=== PATIENT | female | born 1980 | race African-American/Black ===

== ENCOUNTER 2016-09-13 12:44 | Emergency (ER) | payer MEDICAID ==
[2016-09-13 12:49] VITALS: BP 143/92; BMI 66.4
--- NOTE | 2016-09-13 13:53 | DR.GENAD ---
HPI - PCP Primary Care Physician: chasidy johnson - Complaint/Symptoms Chief Complaint:: patient stated she has a rash on her body that started 4 days ago. was seen in [place] [facility] 2 days ago and was told to stop the aubrey and aubrey baby lotion. - Source History Provided: Patient - Mode of Arrival Mode of Arrival: Ambulatory - Timing Onset of Chief Complaint: 09/09/16 PMH - PMH Past Medical History: Yes Past Medical History: Anxiety, Arthritis, Asthma, GERD, Hypertension Past Surgical History: Yes Surgical History: Ortho Surgery - Family History History of Family Medical Conditions: Yes Family Medical History: Diabetes Mellitus, [place], Coronary Artery Disease, Hypertension - Social History Does patient currently use any type of tobacco product: No Have you used tobacco products in the last 12 months: No Type of Tobacco Use: None Does any household member use tobacco: No Alcohol Use: None Do you use any recreational Drugs:: No Lives With: Family Lives Where: Home - infectious screening In the last 2 months have you had wt loss of >10#?: NO Have you had fever, night sweats or hemotysis?: No Have you traveled outside the country in the last 6 months?: No Isolation: Standard ROS - Review of Systems Constitutional: No Symptoms Reported Eyes: No Symptoms Reported ENTM: No Symptoms Reported Respiratoy: No Symptoms Reported Cardiovascular: No Symptoms Reported Gastrointestinal/Abdominal: No Symptoms Reported Genitourinary: No Symptoms Reported Neurological: No Symptoms Reported Musculoskeletal: No Symptoms Reported Integumentary: Rash (macular papular ) Hematologic/Lymphatic: No Symptoms Reported Endocrine: No Symptoms Reported Psychiatric: No Symptoms Reported All Other Systems: Reviewed and Negative PE - Vital Signs Vitals: Temperature 97.8 F Pulse Rate 82 Respiratory Rate 16 Blood Pressure [Left Arm] 151/83 Blood Pressure [Right Arm] 133/73 Blood Pressure 143/92 O2 Sat by Pulse Oximetry 100 - General Limitations: No Limitations General Appearance: Alert, In No Apparent Distress - Head Head Exam: Normal Inspection, Atraumatic - Eyes Eye exam: Normal Appearance, PERRL, EOMI - ENT ENT Exam: Normal Exam External Ear Exam: Normal External Inspection TM/Canal Exam: Bilateral Normal Nose Exam: Normal Nose Exam Mouth Exam: Normal Inspection Throat Exam: Normal Inspection - Neck Neck Exam: Normal Inspection - Chest Chest Inspection: Normal Inspection - Respiratory Respiratory Exam: Normal Lung Sounds Bilat Respiratory Exam: Bilateral Clear to Auscultation - Cardiovascular Cardiovascular Exam: Regular Rate, Normal Rhythm - Abdominal Exam Abdominal Exam: Normal Inspection - Neurologic Neurological Exam: Alert, Oriented X3, CN II-XII Intact - Psychiatric Psychiatric Exam: Normal Affect - Skin Skin Exam: Warm, Dry, Intact, Rash (sparse macularpapular rash trunk) - Diagnosis Discharge Problem: Dermatitis - Discharge Plan Condition: Stable - Follow ups/Referrals Follow ups/Referrals: GLORIA JOHNSON [Primary Care Provider] - 3 days - Instructions
== END 2016-09-13 14:14 | disposition home or self-care (01) ==
LOC: ER 12:44
DX: L30.8 Other specified dermatitis (principal)
CPT/HCPCS: 99281; 99282

== ENCOUNTER → 2016-11-19 | Outpatient (CLI) | payer MEDICAID ==
[2016-11-19 11:56] LABS: BASOPHILS % (AUTO) 0.7 % (0.2-1.0); EOSINOPHILS # (AUTO) 0.1 x10^3/uL (0.0-0.2); EOSINOPHILS % (AUTO) 2.4 % (0.9-2.9); HEMATOCRIT 36.9 % (36.0-47.0); HEMOGLOBIN 11.5 g/dL (12.0-16.0); LYMPHOCYTES # (AUTO) 1.7 X10^3/uL (1.3-2.9); LYMPHOCYTES % (AUTO) 29.3 % (21.0-51.0); MEAN CORPUSCULAR HEMOGLOBIN 20.4 pg (27.0-34.0); MEAN CORPUSCULAR HGB CONC 31.1 g/dL (33.0-35.0); MEAN CORPUSCULAR VOLUME 65.5 fL (80.0-100.0); MEAN PLATELET VOLUME 7.2 fL (7.4-11.0); MONOCYTES # (AUTO) 0.4 x10^3/uL (0.3-0.8); MONOCYTES % (AUTO) 6.3 % (0.0-13.0); NEUTROPHILS # (AUTO) 3.5 x10^3/uL (2.2-4.8); NEUTROPHILS % (AUTO) 61.3 % (42.0-75.0); PLATELET COUNT 315 X10^3/uL (150.0-450.0); RED BLOOD COUNT 5.63 X10^6/uL (3.5-5.4); RED CELL DISTRIBUTION WIDTH 16.2 % (11.6-16.5); WHITE BLOOD COUNT 5.8 X10^3/uL (3.6-10.0)
[2016-11-19 12:16] LABS: PLATELET MORPHOLOGY COMMENT NORMAL (NORMAL)
[2016-11-19 12:17] LABS: HYPOCHROMASIA 2+; MICROCYTOSIS 1+
[2016-11-19 12:30] LABS: ALANINE AMINOTRANSFERASE 27 Units/L (12-78); ALBUMIN 3.2 g/dL (3.4-5.0); ALKALINE PHOSPHATASE 61 Units/L (46-116); ASPARTATE AMINO TRANSFERASE 18 Units/L (15-37); BLOOD UREA NITROGEN 7 mg/dL (7-18); CALCIUM 8.9 mg/dL (8.5-10.1); CARBON DIOXIDE 27.6 mmol/L (21-32); CHLORIDE 103 mmol/L (98-107); CHOL/HDL RATIO 4.2 (0.0-5.0); CHOLESTEROL 181 mg/dL (0-200); COR CA(FOR HYPOALB) 9.5 mg/dL (8.5-10.1); CREATININE 0.81 mg/dL (0.55-1.02); GLUCOSE 98 mg/dL (65-99); HDL CHOLESTEROL 43 mg/dL (40-60); SODIUM 139 mmol/L (136-145); TOTAL PROTEIN 7.2 g/dL (6.4-8.2); TRIGLYCERIDES 107 mg/dL (0-150); eGFR BLACK RACES > 60 (>60); eGFR NON BLACK RACES > 60 (>60)
== END ==
LOC: LAB 11:38
PROVIDERS: ATTEND Nurse Practitioner Family
DX: I10 Essential (primary) hypertension (principal); Z91.89 Other specified personal risk factors, not elsewhere classified
CPT/HCPCS: 36415; 80053; 80061; 85025

== ENCOUNTER → 2016-11-21 | Outpatient (CLI) | payer MEDICAID | LOC: LAB 10:46 | PROVIDERS: ATTEND Nurse Practitioner Family | DX: R53.83 Other fatigue (principal) | CPT/HCPCS: 36415; 82607; 82728; 82746; 83540; 84466 ==

== ENCOUNTER → 2017-05-13 | Outpatient (CLI) | payer MEDICAID ==
--- NOTE | 2017-05-13 10:39 | RAD ---
Examination: Right knee, three views History: Pain and swelling Comparison reference: 08/06/2016 Findings: There is degenerative narrowing of patellar-femoral, lateral and medial compartments. Grisel nal osteophytes are present. No fracture or dislocation is identified. Radiographic detail is limited by patient's size. Impression: Tricompartmental osteoarthritis. No acute features identified. Reported By:
[2017-05-13 10:57] LABS: BASOPHILS # (AUTO) 0.1 X10^3/uL (0.0-0.1); BASOPHILS % (AUTO) 1.4 % (0.2-1.0); EOSINOPHILS # (AUTO) 0.1 x10^3/uL (0.0-0.2); EOSINOPHILS % (AUTO) 1.7 % (0.9-2.9); HEMATOCRIT 36.5 % (36.0-47.0); HEMOGLOBIN 11.6 g/dL (12.0-16.0); LYMPHOCYTES # (AUTO) 2.3 X10^3/uL (1.3-2.9); LYMPHOCYTES % (AUTO) 30.5 % (21.0-51.0); MEAN CORPUSCULAR HEMOGLOBIN 20.8 pg (27.0-34.0); MEAN CORPUSCULAR HGB CONC 31.8 g/dL (33.0-35.0); MEAN CORPUSCULAR VOLUME 65.5 fL (80.0-100.0); MEAN PLATELET VOLUME 7.4 fL (7.4-11.0); MONOCYTES # (AUTO) 0.5 x10^3/uL (0.3-0.8); MONOCYTES % (AUTO) 6.8 % (0.0-13.0); NEUTROPHILS # (AUTO) 4.4 x10^3/uL (2.2-4.8); NEUTROPHILS % (AUTO) 59.6 % (42.0-75.0); PLATELET COUNT 300 X10^3/uL (150.0-450.0); RED BLOOD COUNT 5.58 X10^6/uL (3.5-5.4); RED CELL DISTRIBUTION WIDTH 16.4 % (11.6-16.5); WHITE BLOOD COUNT 7.4 X10^3/uL (3.6-10.0)
[2017-05-13 11:05] LABS: ALANINE AMINOTRANSFERASE 26 Units/L (12-78); ALBUMIN 3.3 g/dL (3.4-5.0); ALKALINE PHOSPHATASE 59 Units/L (46-116); ASPARTATE AMINO TRANSFERASE 17 Units/L (15-37); BLOOD UREA NITROGEN 10 mg/dL (7-18); CALCIUM 8.8 mg/dL (8.5-10.1); CARBON DIOXIDE 26.5 mmol/L (21-32); CHLORIDE 105 mmol/L (98-107); CHOL/HDL RATIO 3.6 (0.0-5.0); CHOLESTEROL 167 mg/dL (0-200); COR CA(FOR HYPOALB) 9.4 mg/dL (8.5-10.1); CREATININE 0.71 mg/dL (0.55-1.02); HDL CHOLESTEROL 46 mg/dL (40-60); SODIUM 140 mmol/L (136-145); TOTAL PROTEIN 7.1 g/dL (6.4-8.2); TRIGLYCERIDES 132 mg/dL (0-150); eGFR BLACK RACES > 60 (>60); eGFR NON BLACK RACES > 60 (>60)
[2017-05-13 11:47] LABS: HYPOCHROMASIA 1+; MICROCYTOSIS 1+; PLATELET MORPHOLOGY COMMENT NORMAL (NORMAL)
[2017-05-13 11:50] LABS: IRON 41 ug/dL (50-175); TOTAL IRON BINDING CAPACITY 333 ug/dL (250-450)
== END ==
LOC: RAD 10:11
PROVIDERS: ATTEND Nurse Practitioner Family
DX: M25.561 Pain in right knee (principal); E78.4 Other hyperlipidemia; E61.1 Iron deficiency; I10 Essential (primary) hypertension
CPT/HCPCS: 36415; 73564; 80053; 80061; 82728; 83540; 83550; 85025

== ENCOUNTER → 2017-06-12 | Outpatient (CLI) | payer MEDICAID | LOC: LAB 11:24 | PROVIDERS: ATTEND Nurse Practitioner Family | DX: Z13.0 Encounter for screening for diseases of the blood and blood-forming organs and certain disorders involving the immune mechanism (principal) | CPT/HCPCS: 36415; 82607; 82728; 82746; 83540; 83550; 83918 ==

== ENCOUNTER → 2017-07-14 | Outpatient (CLI) | payer MEDICAID ==
--- NOTE | 2017-07-14 12:13 | RAD ---
HISTORY: Right-sided facial pain. Status post fall last month. Study: Mandible series: Multiple views Comparison: None Findings: As can best be determined the mandible is intact. The mandibular condyles appear to be normally seat ed. The visualized paranasal sinuses are clear. IMPRESSION: 1. Negative plain films of the mandibles. 2. CT scan may be of assistance if clinically indicated. This may disclosed clinically significant nondisplaced fractures that plain films cannot demonstrate. Reported By:
== END ==
LOC: RAD 11:38
PROVIDERS: ATTEND Orthopaedic Surgery
DX: R51 Headache (principal)
CPT/HCPCS: 70110

== ENCOUNTER 2017-09-02 07:51 | Emergency (ER) | payer MEDICAID ==
[2017-09-02 07:59] VITALS: BP 185/85; BMI 53.1
--- NOTE | 2017-09-02 09:10 | DR.GENAD ---
HPI - PCP Primary Care Physician: RENETTA - HPI Comment HPI Comment: LOST LOT OF BLOOD WITH CLOTS. SHE HAD TO CLEAN FLOOR WHEN BLOOD AND CLOTS GOT TO THE FLOOR UPON STANDING. SLIGHT DIZZINES THAT IS RESOLVING AND CHEST DISCOMFORT THAT IS RESOLVE. - Complaint/Symptoms Chief Complaint Doctors Comments: HEAVY MENTRUAL BLEEDING NOTED THIS AM. Chief Complaint:: HEAVY BLEEDING FROM MENSTRUAL CYCLE. HEAVINESS IN CHEST. DENIES SOB OR TINGLING/ NUMBNESS ANY WHERE - Nurses notes reviewed Nurses Notes Review: Yes - Source History Provided: Patient - Mode of Arrival Mode of Arrival: Ambulatory - Timing Onset of Chief Complaint: 09/02/17 Came on: Suddenly - Duration Duration: Constant Duration: Hours - Severity Severity: Moderate PMH - PMH Past Medical History: Yes Past Medical History: Anxiety, Arthritis, Asthma, GERD, Hypertension Past Surgical History: Yes Surgical History: Ortho Surgery - Family History History of Family Medical Conditions: Yes Family Medical History: Diabetes Mellitus, [place], Coronary Artery Disease, Hypertension - Social History Does any household member use tobacco: No Alcohol Use: None Do you use any recreational Drugs:: No Lives With: Family Lives Where: Home - infectious screening In the last 2 months have you had wt loss of >10#?: NO Have you had fever, night sweats or hemotysis?: No Have you traveled outside the country in the last 6 months?: No Isolation: Standard ROS - Review of Systems Constitutional: No Symptoms Reported Eyes: No Symptoms Reported ENTM: No Symptoms Reported Respiratoy: No Symptoms Reported Cardiovascular: No Symptoms Reported Gastrointestinal/Abdominal: No Symptoms Reported Genitourinary: Bleeding Neurological: No Symptoms Reported Musculoskeletal: No Symptoms Reported Integumentary: No Symptoms Reported Hematologic/Lymphatic: No Symptoms Reported Endocrine: No Symptoms Reported All Other Systems: Reviewed and Negative PE - Vital Signs Vitals: Temperature 97.7 F Pulse Rate 92 Respiratory Rate 22 Blood Pressure [Left Arm] 151/83 Blood Pressure [Right Arm] 133/73 Blood Pressure 185/85 O2 Sat by Pulse Oximetry 100 - General Limitations: No Limitations General Appearance: Alert - Head Head Exam: Normal Inspection - Eyes Eye exam: Normal Appearance - ENT ENT Exam: Normal External Ear Exam External Ear Exam: Normal External Inspection Nose Exam: Normal Nose Exam Throat Exam: Normal Inspection - Neck Neck Exam: Trachea Midline - Chest Chest Inspection: Symmetric Chest Wall Rise - Respiratory Respiratory Exam: Normal Lung Sounds Bilat Respiratory Exam: Bilateral Clear to Auscultation - Cardiovascular Cardiovascular Exam: Regular Rate, Normal Rhythm, Normal Heart Sounds - Abdominal Exam Abdominal Exam: Normal Bowel Sounds, Soft. negative: Tenderness - Extremities Extremities Exam: Normal Inspection - Back Back Exam: Normal Inspection - Neurologic Neurological Exam: Alert, Oriented X3 - Psychiatric Psychiatric Exam: Normal Affect, Normal Mood - Skin Skin Exam: Normal Color MDM - Differential Diagnosis Differential Diagnosis: MENORRHAGIA, DYSFUNCTIONAL UTERIN BLEEDING. Course - Treatment Treatment: SEE EBONY. - Education/Counseling Education/Counseling: Patient, Education Educated On: Diagnosis, Needs for Follow Up ROR - Labs Reviewed Laboratory Results Reviewed?: Yes Result Diagrams: 09/02/17 09:18 09/02/17 09:18 Laboratory: WBC 6.1 X10^3/uL (3.6-10.0) 09/02/17 09:18 RBC 5.40 X10^6/uL (3.5-5.4) 09/02/17 09:18 Hgb 11.1 g/dL (12.0-16.0) L 09/02/17 09:18 Hct 35.2 % (36.0-47.0) L 09/02/17 09:18 MCV 65.1 fL (80.0-100.0) L 09/02/17 09:18 MCH 20.6 pg (27.0-34.0) L 09/02/17 09:18 MCHC 31.6 g/dL (33.0-35.0) L 09/02/17 09:18 RDW 17.1 % (11.6-16.5) H 09/02/17 09:18 Plt Count 298 X10^3/uL (150.0-450.0) 09/02/17 09:18 Plt Count Comment Adequate (ADEQUATE) 09/02/17 09:18 MPV 7.4 fL (7.4-11.0) 09/02/17 09:18 Neut % 58.5 % (42.0-75.0) 09/02/17 09:18 Lymph % 31.1 % (21.0-51.0) 09/02/17 09:18 [place] % 6.8 % (0.0-13.0) 09/02/17 09:18 Eos % 2.4 % (0.9-2.9) 09/02/17 09:18 Baso % 1.2 % (0.2-1.0) H 09/02/17 09:18 Neut # 3.5 x10^3/uL (2.2-4.8) 09/02/17 09:18 Lymph # 1.9 X10^3/uL (1.3-2.9) 09/02/17 09:18 [place] # 0.4 x10^3/uL (0.3-0.8) 09/02/17 09:18 Eos # 0.1 x10^3/uL (0.0-0.2) 09/02/17 09:18 Baso # 0.1 X10^3/uL (0.0-0.1) 09/02/17 09:18 Absolute Nucleated RBC 0.0 /100WBC 09/02/17 09:18 Plt Morphology Comment Normal (NORMAL) 09/02/17 09:18 RBC Morphology Abnormal (NORMAL) A 09/02/17 09:18 Hypochromasia 2+ A 09/02/17 09:18 Microcytosis 1+ A 09/02/17 09:18 INR Target Range - 09/02/17 09:18 INR 1.02 (0.8-1.3) 09/02/17 09:18 PTT 27.4 SECONDS (22.9-36.5) 09/02/17 09:18 PTT Comment - 09/02/17 09:18 Sodium 139 mmol/L (136-145) 09/02/17 09:18 Corrected Sodium TNP 09/02/17 09:18 Potassium 4.1 mmol/L (3.5-5.1) 09/02/17 09:18 Chloride 104 mmol/L (98-107) 09/02/17 09:18 Carbon Dioxide 26.6 mmol/L (21-32) 09/02/17 09:18 BUN 12 mg/dL (7-18) 09/02/17 09:18 Creatinine 0.74 mg/dL (0.55-1.02) 09/02/17 09:18 Est GFR (MDRD) Af Amer > 60 (>60) 09/02/17 09:18 Est GFR (MDRD) Non-Af > 60 (>60) 09/02/17 09:18 Glucose 106 mg/dL (65-99) H 09/02/17 09:18 Calcium 8.5 mg/dL (8.5-10.1) 09/02/17 09:18 Corrected Calcium 9.2 mg/dL (8.5-10.1) 09/02/17 09:18 Total Bilirubin 0.20 mg/dL (0.2-1.0) 09/02/17 09:18 AST 16 Units/L (15-37) 09/02/17 09:18 ALT 25 Units/L (12-78) 09/02/17 09:18 Alkaline Phosphatase 54 Units/L (46-116) 09/02/17 09:18 Total Protein 7.1 g/dL (6.4-8.2) 09/02/17 09:18 Albumin 3.1 g/dL (3.4-5.0) L 09/02/17 09:18 Globulin 4.0 g/dL (2.5-4.5) 09/02/17 09:18 Albumin/Globulin Ratio 0.8 Ratio (1.1-2.1) L 09/02/17 09:18 HCG, Quant < 1 mIU/mL (0-6) 09/02/17 09:18 Specimen Type Random urine 09/02/17 09:41 Urine Color Bloody (YELLOW) 09/02/17 09:41 Urine Appearance Cloudy (CLEAR) 09/02/17 09:41 Urine pH 6.0 (5.0 - 8.0) 09/02/17 09:41 Ur Specific [place] 1.020 (1.000-1.030) 09/02/17 09:41 Urine Protein 3+ (NEGATIVE) 09/02/17 09:41 Urine Glucose (UA) Negative (NEGATIVE) 09/02/17 09:41 Urine Ketones Negative (NEGATIVE) 09/02/17 09:41 Urine Occult Blood 5+ (NEGATIVE) 09/02/17 09:41 Urine Nitrite Positive (NEGATIVE) 09/02/17 09:41 Urine Bilirubin Negative (NEGATIVE) 09/02/17 09:41 Urine Urobilinogen 1+ (NORMAL) 09/02/17 09:41 Ur Leukocyte Esterase 2+ (NEGATIVE) 09/02/17 09:41 Urine RBC Tntc /HPF (NONE SEEN) 03/06/18 09:41 Urine WBC 3-5 /HPF (NONE SEEN) 09/02/17 09:41 Ur Squamous Epith Cells Rare /HPF (NEGATIVE) 09/02/17 09:41 Amorphous Sediment Trace /HPF (NEGATIVE) 09/02/17 09:41 Urine Bacteria Trace /HPF (NEGATIVE) 09/02/17 09:41 Urine Mucus Few /HPF (NEGATIVE) 09/02/17 09:41 Ur Culture Indicated? No/not indicated 09/02/17 09:41 - Diagnosis Discharge Problem: Menorrhagia Qualifiers: Menorrahagia type: with regular cycle Qualified Code(s): N92.0 - Excessive and frequent menstruation with regular cycle - Discharge Plan Disposition: 01 HOME, SELF-CARE Condition: Stable - Follow ups/Referrals Follow ups/Referrals: BANDAR ULLOA [STAFF PHYSICIAN] - 09/03/17 SANDRA ORO [Primary Care Provider] - 2 days - Instructions Instructions: Abnormal Uterine Bleeding, [id number] Additional Instructions: RETURN TO ED IF WORSE.
[2017-09-02 09:40] LABS: BASOPHILS # (AUTO) 0.1 X10^3/uL (0.0-0.1); BASOPHILS % (AUTO) 1.2 % (0.2-1.0); EOSINOPHILS # (AUTO) 0.1 x10^3/uL (0.0-0.2); EOSINOPHILS % (AUTO) 2.4 % (0.9-2.9); HEMATOCRIT 35.2 % (36.0-47.0); HEMOGLOBIN 11.1 g/dL (12.0-16.0); LYMPHOCYTES # (AUTO) 1.9 X10^3/uL (1.3-2.9); LYMPHOCYTES % (AUTO) 31.1 % (21.0-51.0); MEAN CORPUSCULAR HEMOGLOBIN 20.6 pg (27.0-34.0); MEAN CORPUSCULAR HGB CONC 31.6 g/dL (33.0-35.0); MEAN CORPUSCULAR VOLUME 65.1 fL (80.0-100.0); MEAN PLATELET VOLUME 7.4 fL (7.4-11.0); MONOCYTES # (AUTO) 0.4 x10^3/uL (0.3-0.8); MONOCYTES % (AUTO) 6.8 % (0.0-13.0); NEUTROPHILS # (AUTO) 3.5 x10^3/uL (2.2-4.8); NEUTROPHILS % (AUTO) 58.5 % (42.0-75.0); PLATELET COUNT 298 X10^3/uL (150.0-450.0); RED CELL DISTRIBUTION WIDTH 17.1 % (11.6-16.5); WHITE BLOOD COUNT 6.1 X10^3/uL (3.6-10.0)
[2017-09-02 09:56] LABS: BILIRUBIN,URINE NEGATIVE (NEGATIVE); BLOOD/HEMOGLOBIN,URINE 5+ (NEGATIVE); GLUCOSE, URINE NEGATIVE (NEGATIVE); KETONES,URINE NEGATIVE (NEGATIVE); LEUKOCYTE ESTERASE ,URINE 2+ (NEGATIVE); NITRITES,URINE POSITIVE (NEGATIVE); PROTEIN,URINE 3+ (NEGATIVE); UROBILINOGEN,URINE 1+ (NORMAL)
[2017-09-02 09:59] LABS: ALANINE AMINOTRANSFERASE 25 Units/L (12-78); ALBUMIN 3.1 g/dL (3.4-5.0); ALKALINE PHOSPHATASE 54 Units/L (46-116); ASPARTATE AMINO TRANSFERASE 16 Units/L (15-37); BLOOD UREA NITROGEN 12 mg/dL (7-18); CALCIUM 8.5 mg/dL (8.5-10.1); CARBON DIOXIDE 26.6 mmol/L (21-32); CHLORIDE 104 mmol/L (98-107); COR CA(FOR HYPOALB) 9.2 mg/dL (8.5-10.1); CREATININE 0.74 mg/dL (0.55-1.02); SODIUM 139 mmol/L (136-145); TOTAL PROTEIN 7.1 g/dL (6.4-8.2); eGFR BLACK RACES > 60 (>60); eGFR NON BLACK RACES > 60 (>60)
[2017-09-02 10:05] LABS: HYPOCHROMASIA 2+; MICROCYTOSIS 1+; PLATELET MORPHOLOGY COMMENT NORMAL (NORMAL)
[2017-09-02 10:08] LABS: HCG,QUANTITATIVE < 1 mIU/mL (0-6)
[2017-09-02 10:12] LABS: APPEARANCE,URINE CLOUDY (CLEAR); COLOR,URINE BLOODY (YELLOW)
[2017-09-02 10:13] LABS: AMORPHOUS SEDIMENT,UR TRACE /HPF (NEGATIVE); BACTERIA,URINE TRACE /HPF (NEGATIVE); MUCUS,URINE FEW /HPF (NEGATIVE); RBC,URINE TNTC /HPF (NONE SEEN); SQUAMOUS EPITHELIAL CELL,UR RARE /HPF (NEGATIVE)
== END 2017-09-02 10:35 | disposition home or self-care (01) ==
LOC: ER 08:03
DX: N92.0 Excessive and frequent menstruation with regular cycle (principal)
CPT/HCPCS: 36415; 80053; 81001; 84702; 85025; 85610; 85730; 99282

== ENCOUNTER → 2017-09-29 | Outpatient (CLI) | payer MEDICAID ==
[2017-09-02 07:59] VITALS: BP 185/85
[2017-09-29 10:49] LABS: BASOPHILS # (AUTO) 0.1 X10^3/uL (0.0-0.1); BASOPHILS % (AUTO) 1.1 % (0.2-1.0); EOSINOPHILS % (AUTO) 0.3 % (0.9-2.9); HEMATOCRIT 35.7 % (36.0-47.0); HEMOGLOBIN 11.3 g/dL (12.0-16.0); LYMPHOCYTES # (AUTO) 2.7 X10^3/uL (1.3-2.9); LYMPHOCYTES % (AUTO) 26.5 % (21.0-51.0); MEAN CORPUSCULAR HEMOGLOBIN 20.6 pg (27.0-34.0); MEAN CORPUSCULAR HGB CONC 31.6 g/dL (33.0-35.0); MEAN CORPUSCULAR VOLUME 65.4 fL (80.0-100.0); MEAN PLATELET VOLUME 7.3 fL (7.4-11.0); MONOCYTES # (AUTO) 0.5 x10^3/uL (0.3-0.8); MONOCYTES % (AUTO) 5.5 % (0.0-13.0); NEUTROPHILS # (AUTO) 6.7 x10^3/uL (2.2-4.8); NEUTROPHILS % (AUTO) 66.6 % (42.0-75.0); PLATELET COUNT 335 X10^3/uL (150.0-450.0); RED BLOOD COUNT 5.46 X10^6/uL (3.5-5.4); WHITE BLOOD COUNT 10.1 X10^3/uL (3.6-10.0)
[2017-09-29 10:52] LABS: ALANINE AMINOTRANSFERASE 24 Units/L (12-78); ALBUMIN 3.1 g/dL (3.4-5.0); ALKALINE PHOSPHATASE 58 Units/L (46-116); ASPARTATE AMINO TRANSFERASE 11 Units/L (15-37); BLOOD UREA NITROGEN 12 mg/dL (7-18); CALCIUM 7.9 mg/dL (8.5-10.1); CARBON DIOXIDE 26.7 mmol/L (21-32); CHLORIDE 105 mmol/L (98-107); CHOLESTEROL 185 mg/dL (0-200); COR CA(FOR HYPOALB) 8.6 mg/dL (8.5-10.1); CREATININE 0.66 mg/dL (0.55-1.02); HDL CHOLESTEROL 56 mg/dL (40-60); SODIUM 139 mmol/L (136-145); TOTAL PROTEIN 7.2 g/dL (6.4-8.2); TRIGLYCERIDES 92 mg/dL (0-150); eGFR BLACK RACES > 60 (>60); eGFR NON BLACK RACES > 60 (>60)
[2017-09-29 10:53] LABS: CHOL/HDL RATIO 3.3 (0.0-5.0)
[2017-09-29 11:11] LABS: HYPOCHROMASIA 2+; MICROCYTOSIS 1+; PLATELET MORPHOLOGY COMMENT NORMAL (NORMAL)
[2017-09-29 11:25] LABS: ERYTHROCYTE SEDIMENTATION RATE 18 MM/HOUR (0-20)
== END ==
LOC: LAB 10:14
PROVIDERS: ATTEND Nurse Practitioner Family
DX: E78.4 Other hyperlipidemia (principal); I10 Essential (primary) hypertension; M17.0 Bilateral primary osteoarthritis of knee; R79.82 Elevated C-reactive protein (CRP)
CPT/HCPCS: 36415; 80053; 80061; 85025; 85652; 86140

== ENCOUNTER → 2017-10-20 | Outpatient (CLI) | payer MEDICAID ==
--- NOTE | 2017-10-20 16:58 | RAD ---
HISTORY: Chest pain. Study: PA and lateral chest Comparison: 02/20/2016 Findings: The heart, lungs, mediastinum and bony structures are normal for patient's age with minimal convex ri ght thoracic scoliosis and mild thoracic spondylosis. IMPRESSION: 1. No radiographic evidence of acute cardiopulmonary disease or significant change is noted when com pared to the prior examination. Reported By:
== END ==
LOC: LAB 16:21
PROVIDERS: ATTEND Nurse Practitioner Family
DX: D53.9 Nutritional anemia, unspecified (principal); R07.89 Other chest pain
CPT/HCPCS: 36415; 71046; 82607; 82728; 82746; 83540; 83550; 83918

== ENCOUNTER → 2017-11-10 | Outpatient (CLI) | payer MEDICAID ==
[2017-11-10 15:31] LABS: BASOPHILS # (AUTO) 0.1 X10^3/uL (0.0-0.1); BASOPHILS % (AUTO) 1.4 % (0.2-1.0); EOSINOPHILS # (AUTO) 0.2 x10^3/uL (0.0-0.2); EOSINOPHILS % (AUTO) 2.8 % (0.9-2.9); HEMATOCRIT 36.2 % (36.0-47.0); HEMOGLOBIN 11.5 g/dL (12.0-16.0); LYMPHOCYTES # (AUTO) 2.8 X10^3/uL (1.3-2.9); LYMPHOCYTES % (AUTO) 43.1 % (21.0-51.0); MEAN CORPUSCULAR HEMOGLOBIN 20.7 pg (27.0-34.0); MEAN CORPUSCULAR HGB CONC 31.7 g/dL (33.0-35.0); MEAN CORPUSCULAR VOLUME 65.2 fL (80.0-100.0); MEAN PLATELET VOLUME 7.2 fL (7.4-11.0); MONOCYTES # (AUTO) 0.5 x10^3/uL (0.3-0.8); MONOCYTES % (AUTO) 7.5 % (0.0-13.0); NEUTROPHILS # (AUTO) 2.9 x10^3/uL (2.2-4.8); NEUTROPHILS % (AUTO) 45.2 % (42.0-75.0); PLATELET COUNT 325 X10^3/uL (150.0-450.0); RED BLOOD COUNT 5.55 X10^6/uL (3.5-5.4); RED CELL DISTRIBUTION WIDTH 17.6 % (11.6-16.5); WHITE BLOOD COUNT 6.4 X10^3/uL (3.6-10.0)
[2017-11-10 15:40] LABS: ALANINE AMINOTRANSFERASE 29 Units/L (12-78); ALBUMIN 3.1 g/dL (3.4-5.0); ALKALINE PHOSPHATASE 58 Units/L (46-116); ASPARTATE AMINO TRANSFERASE 12 Units/L (15-37); BLOOD UREA NITROGEN 10 mg/dL (7-18); CALCIUM 8.3 mg/dL (8.5-10.1); CARBON DIOXIDE 28.7 mmol/L (21-32); CHLORIDE 105 mmol/L (98-107); CREATININE 0.71 mg/dL (0.55-1.02); SODIUM 139 mmol/L (136-145); TOTAL PROTEIN 6.7 g/dL (6.4-8.2); eGFR BLACK RACES > 60 (>60); eGFR NON BLACK RACES > 60 (>60)
[2017-11-10 15:50] LABS: HYPOCHROMASIA 2+; PLATELET MORPHOLOGY COMMENT NORMAL (NORMAL)
[2017-11-10 15:51] LABS: ANISOCYTOSIS SLIGHT; MICROCYTOSIS 1+
[2017-11-10 16:28] LABS: ERYTHROCYTE SEDIMENTATION RATE 15 MM/HOUR (0-20)
== END ==
LOC: LAB 14:56
PROVIDERS: ATTEND Nurse Practitioner Family
DX: M70.51 Other bursitis of knee, right knee (principal); I10 Essential (primary) hypertension; R79.82 Elevated C-reactive protein (CRP)
CPT/HCPCS: 36415; 80053; 85025; 85652; 86140

== ENCOUNTER 2018-01-02 21:07 | Observation (INO) ==
[2018-01-02] MEDS ORDERED: ASPIRIN PO ONE (21:35)
[2018-01-02] MEDS ORDERED: ASPIRIN ONE (21:44)
--- NOTE | 2018-01-02 21:48 | DR.CP ---
HPI - Time Seen Time seen: 21:37 - PCP Primary Care Physician: GISSELL ORO - Complaint Chief Complaint Doctor Comments: Patient is complaining of tightness in chest for a few minutes then it release and her heart seems to beat fast afterwards. States she has been having chest pain for the past 2-3 months that has been getting worst recently. States she took a nitroglycerin yesterday and it helped the pain but she has not had a nitroglycerin or aspirin today. States she went to see her doctor and she gave her some nitroglycerin to put under her tongue when she has chest pain. States the chest pains are sharp at times and is dull at times. States she has seen a balloon artist in the past and they told her her heart was fine about a year ago. States her mother has CHF, COPD and Bradycardia and she just had a sister to for a heart attack at age 45. States she was on dialysis and had other problems. She denies wheezing but has been having problems with her legs and feet swelling. States she is taking Lasix , potassium, Losartan, neurontin and prevacid. State she has not had any medicines today. States the pain is 8 of 10. Chief Complaint:: CHEST PAIN, "FEELS LIKE MY HEART TIGHTNESS AND THEN WHEN I TAKE A DEEP BREATH IT RELAXES. I FEEL LIKE MY HEART BEATS REALLY FAST AND HARD AT TIMES. THIS HAS BEEN GOING ON FOR A WHILE. I HAVE BEEN SEEING MY ." Self Treatment fo Chief Complaint: NITROGLYCERIN LAST NIGHT-DIDN'T HELP PAIN - Reviewed Nurses Notes Review: Yes - Source History Provided: Patient - Mode of Arrival Mode of Arrival: Ambulatory - Timing Onset of Chief Complaint: 12/19/17 Came on: Gradually Pain: Present Now - Duration Duration: Intermittent How lon Duration: Weeks - Location Location of Chest Pain: Chest Chest Pain Radiation Location: None - Context Onset: At rest, With light exertion Cardiac Risk Factors: Family History, HTN PE Risk Factors: None History of: Similar pain in the past Prehospital Care: None - Quality Quality: Sharp - Severity Severity: Moderate - Modifying Factors Worsens: Nothing Impoves: Nothing - Associated Signs and Symptoms Associated Signs and Symptoms: Palpitations PMH - PMH Past Medical History: Yes Past Medical History: Anxiety, Arthritis, Asthma, GERD, Hypertension Past Surgical History: Yes Surgical History: Ortho Surgery Past Surgical History Comment: LEFT FOOT - Family History History of Family Medical Conditions: Yes Family Medical History: Diabetes Mellitus, [place], Coronary Artery Disease, Hypertension - Social History Does patient currently use any type of tobacco product: No Have you used tobacco products in the last 12 months: No Type of Tobacco Use: None Does any household member use tobacco: No Alcohol Use: None Do you use any recreational Drugs:: No Lives With: Family Lives Where: Home - infectious screening Have you traveled outside the country in the last 6 months?: No Isolation: Standard ROS - Review of Systems Constitutional: No Symptoms Reported. negative: See HPI, Chills, Diaphoresis, Fever, Malaise, Weakness, Irritable, Fatigue, Loss of Appetite, Other Eyes: No Symptoms Reported. negative: See HPI, Eye Pain, Blurred Vision, Tearing, Discharge, Photophobia, Diplopia, Other ENTM: No Symptoms Reported Respiratoy: No Symptoms Reported. negative: See HPI, Productive Cough, Non- Productive Cough, Moist Cough, Dry Cough, Hacking Cough, Barking Cough, Brassy Cough, Orthopnea, Short of Breath, Stridor, Wheezing, Hemoptysis, Other Cardiovascular: Chest Pain, Palpitations. negative: No Symptoms Reported, See HPI, Edema, Syncope, Cyanosis, Skin Mottling, Other Gastrointestinal/Abdominal: No Symptoms Reported. negative: See HPI, Abdominal Pain, Constipation, Diarrhea, Nausea, Vomiting, Food Intolerance, Other Genitourinary: No Symptoms Reported. negative: See HPI, Discharge, Dysuria, Frequency, Hematuria, Pain, Bleeding, Other Neurological: No Symptoms Reported. negative: See HPI, Anxiety, Depressed, Emotional Problems, Headache, Numbness, Paresthesia, Pre-existing Deficit, Seizure, Tingling, Tremors, Weakness, Dizziness, Problems Walking, Speech Problem, Other Musculoskeletal: No Symptoms Reported Integumentary: No Symptoms Reported. negative: See HPI, Change in Color, Change in Hair/Nails, Dryness, Lesions, Lumps, Rash, Itching, Wound, Bruises, Juandice, Other Hematologic/Lymphatic: No Symptoms Reported Endocrine: No Symptoms Reported Psychiatric: No Symptoms Reported. negative: See HPI, Anxiety, Depression, Hallucinations, Excessive crying, Suicidal, Other PE - General Limitations: No Limitations General Appearance: Alert, In No Apparent Distress, Obese - Head Head Exam: Normal Inspection, Atraumatic, Normocephalic - Eyes Eye exam: Normal Appearance, PERRL, EOMI. negative: Scleral Icterus, Conjunctival Injection, Nystagmus, Miosis, Mydrasis, Periorbital Swelling, Periorbital Tenderness, Other - ENT ENT Exam: Normal Exam, Normal Oropharynx, Normal External Ear Exam, Mucous Membranes Moist, TM's Normal Bilaterally - Chest Chest Inspection: Normal Inspection, Symmetric Chest Wall Rise - Respiratory Respiratory Exam: Normal Lung Sounds Bilat Respiratory Exam: Bilateral Clear to Auscultation - Cardiovascular Cardiovascular Exam: Regular Rate, Normal Rhythm, Normal Heart Sounds Pulse: Normal Edema: 2, Bilateral, Lower, Extremity - Abdominal Exam Abdominal Exam: Normal Inspection, Normal Bowel Sounds, Soft Abdominal Tenderness: negative: RUQ, RLQ, LUQ, LLQ, Epigastrium, Suprapubic, Diffuse, Mild, Moderate, Severe, Other - Extremities Extremities Exam: Normal Inspection, Full ROM, Normal Capillary Refill (pes planus), Edema. negative: Tenderness, Joint Swelling, Calf Tenderness, Other - Back Back Exam: Normal Inspection, Full ROM. negative: Tenderness, (R) CVA Tenderness, (L) CVA Tenderness, Muscle Spasm, Paraspinal Tenderness, Vertebral Tenderness, Rashes, (R) Sciatic Notch Tenderness, (L) Sciatic Notch Tendern, (R ) Straight Leg Raise, (L) Straight Leg Raise, Other - Neurologic Neurological Exam: Alert, Oriented X3, CN II-XII Intact, Normal Gait, Reflexes Normal - Psychiatric Psychiatric Exam: Normal Affect, Normal Mood. negative: Depressed, Agitated, Anxious, Flat Affect, Manic, Homicidal Ideation, Suicidal Ideation, Other - Skin Skin Exam: Warm, Dry, Intact, Normal Color - Vitals Vitals: Temperature 97.7 F Pulse Rate [Apical] 89 Pulse Rate 88 Respiratory Rate 22 Blood Pressure [Left Arm] 139/78 Blood Pressure [Right Arm] 133/73 Blood Pressure 135/96 O2 Sat by Pulse Oximetry 100 Course - Reevaluation 1st: - Consultation Called: :34 Call Returned: :34 (Dr. Elmore to admit) - Education/Counseling Education/Counseling: Patient, Family Educated On: Treatment, Diagnosis, Needs for Follow Up ROR - Labs Reviewed Laboratory Results Reviewed?: Yes (All labs and x-ray results reviewed and discussed with patient) Result Diagrams: 01/02/18 21:47 01/02/18 21:47 - XRAY XRAY Interpreted by: Radiologist (CXR: Low lung volumes without acute abnormality.) - EKG Rate: 84 Holder: Normal Rhythm: NSR Block: None Hypertrophy: LVH ST: Inf, Nonsp - Labs Reviewed Laboratory: WBC 7.6 X10^3/uL (3.6-10.0) 01/02/18 21:47 RBC 5.04 X10^6/uL (3.5-5.4) 01/02/18 21:47 Hgb 10.7 g/dL (12.0-16.0) L 01/02/18 21:47 Hct 33.5 % (36.0-47.0) L 01/02/18 21:47 MCV 66.5 fL (80.0-100.0) L 01/02/18 21:47 MCH 21.2 pg (27.0-34.0) L 01/02/18 21:47 MCHC 31.9 g/dL (33.0-35.0) L 01/02/18 21:47 RDW 17.1 % (11.6-16.5) H 01/02/18 21:47 Plt Count 302 X10^3/uL (150.0-450.0) 01/02/18 21:47 Plt Count Comment Adequate (ADEQUATE) 01/02/18 21:47 MPV 7.4 fL (7.4-11.0) 01/02/18 21:47 Neut % (Auto) 53.9 % (42.0-75.0) 01/02/18 21:47 Lymph % (Auto) 35.4 % (21.0-51.0) 01/02/18 21:47 [place] % (Auto) 6.3 % (0.0-13.0) 01/02/18 21:47 Eos % (Auto) 3.1 % (0.9-2.9) H 01/02/18 21:47 Baso % (Auto) 1.3 % (0.2-1.0) H 01/02/18 21:47 Neut # (Auto) 4.1 x10^3/uL (2.2-4.8) 01/02/18 21:47 Lymph # (Auto) 2.7 X10^3/uL (1.3-2.9) 01/02/18 21:47 [place] # (Auto) 0.5 x10^3/uL (0.3-0.8) 01/02/18 21:47 Eos # (Auto) 0.2 x10^3/uL (0.0-0.2) 01/02/18 21:47 Baso # (Auto) 0.1 X10^3/uL (0.0-0.1) 01/02/18 21:47 Absolute Nucleated RBC 0.0 /100WBC 01/02/18 21:47 Plt Morphology Comment Normal (NORMAL) 01/02/18 21:47 RBC Morphology Abnormal (NORMAL) A 01/02/18 21:47 Hypochromasia 1+ A 01/02/18 21:47 Microcytosis 1+ A 01/02/18 21:47 INR Target Range - 01/02/18 21:47 INR 0.97 (0.8-1.3) 01/02/18 21:47 APTT 27.2 SECONDS (22.9-36.5) 01/02/18 21:47 PTT Comment - 01/02/18 21:47 D-Dimer 612 ng/mL (0-400) H* 01/02/18 21:47 Sodium 138 mmol/L (136-145) 01/02/18 21:47 Corrected Sodium TNP 01/02/18 21:47 Potassium 3.8 mmol/L (3.5-5.1) 01/02/18 21:47 Chloride 105 mmol/L (98-107) 01/02/18 21:47 Carbon Dioxide 27.5 mmol/L (21-32) 01/02/18 21:47 BUN 11 mg/dL (7-18) 01/02/18 21:47 Creatinine 0.80 mg/dL (0.55-1.02) 01/02/18 21:47 Est GFR (MDRD) Af Amer > 60 (>60) 01/02/18 21:47 Est GFR (MDRD) Non-Af > 60 (>60) 01/02/18 21:47 Glucose 103 mg/dL (65-99) H 01/02/18 21:47 Calcium 9.0 mg/dL (8.5-10.1) 01/02/18 21:47 Corrected Calcium 9.9 mg/dL (8.5-10.1) 01/02/18 21:47 Magnesium 1.7 mg/dL (1.7-2.9) 01/02/18 21:47 Total Bilirubin 0.20 mg/dL (0.2-1.0) 01/02/18 21:47 AST 13 Units/L (15-37) L 01/02/18 21:47 ALT 25 Units/L (12-78) 01/02/18 21:47 Alkaline Phosphatase 56 Units/L (46-116) 01/02/18 21:47 Creatine Kinase 76 Units/L (26-192) 01/02/18 21:47 CK-MB (CK-2) < 1.0 ng/mL (0-4.0) 01/02/18 21:47 CK/CKMB % Calc 1.3 % (<4) 01/02/18 21:47 Troponin I < 0.02 ng/mL (0-1.5) 01/02/18 21:47 Total Protein 6.4 g/dL (6.4-8.2) 01/02/18 21:47 Albumin 2.9 g/dL (3.4-5.0) L 01/02/18 21:47 Globulin 3.5 g/dL (2.5-4.5) 01/02/18 21:47 Albumin/Globulin Ratio 0.8 Ratio (1.1-2.1) L 01/02/18 21:47 - Diagnosis Discharge Problem: Chest pain, rule out acute myocardial infarction, Abnormal finding of blood chemistry Dyspnea Qualifiers: Dyspnea type: unspecified Qualified Code(s): R06.00 - Dyspnea, unspecified - Discharge Plan Disposition: ADMITTED INPATIENT Condition: Stable - Follow ups/Referrals Follow ups/Referrals: SANDRA ORO [Primary Care Provider] - 3 days - Instructions
[2018-01-02] MEDS: NS 1000 ML 1,000 ML IV SCH (21:51)
[2018-01-02] MEDS: NITROSTAT SL PRN ×3 (21:52→22:02)
[2018-01-02 22:02] LABS: BASOPHILS # (AUTO) 0.1 X10^3/uL (0.0-0.1); BASOPHILS % (AUTO) 1.3 % (0.2-1.0); EOSINOPHILS # (AUTO) 0.2 x10^3/uL (0.0-0.2); EOSINOPHILS % (AUTO) 3.1 % (0.9-2.9); HEMATOCRIT 33.5 % (36.0-47.0); HEMOGLOBIN 10.7 g/dL (12.0-16.0); LYMPHOCYTES # (AUTO) 2.7 X10^3/uL (1.3-2.9); LYMPHOCYTES % (AUTO) 35.4 % (21.0-51.0); MEAN CORPUSCULAR HEMOGLOBIN 21.2 pg (27.0-34.0); MEAN CORPUSCULAR HGB CONC 31.9 g/dL (33.0-35.0); MEAN CORPUSCULAR VOLUME 66.5 fL (80.0-100.0); MEAN PLATELET VOLUME 7.4 fL (7.4-11.0); MONOCYTES # (AUTO) 0.5 x10^3/uL (0.3-0.8); MONOCYTES % (AUTO) 6.3 % (0.0-13.0); NEUTROPHILS # (AUTO) 4.1 x10^3/uL (2.2-4.8); NEUTROPHILS % (AUTO) 53.9 % (42.0-75.0); PLATELET COUNT 302 X10^3/uL (150.0-450.0); RED BLOOD COUNT 5.04 X10^6/uL (3.5-5.4); RED CELL DISTRIBUTION WIDTH 17.1 % (11.6-16.5); WHITE BLOOD COUNT 7.6 X10^3/uL (3.6-10.0)
--- NOTE | 2018-01-02 22:12 | RAD ---
HISTORY: Chest pain and tightness Study: Single view chest Comparison: 10/20/2017 Findings: Lung volumes are reduced. No infiltrate, effusion or pneumothorax identified. The cardiac and mediast inal contours are within normal limits. The soft tissues are unremarkable. IMPRESSION: 1. Low lung volumes without acute abnormality. Reported By:
[2018-01-02 22:22] LABS: HYPOCHROMASIA 1+; MICROCYTOSIS 1+; PLATELET MORPHOLOGY COMMENT NORMAL (NORMAL)
[2018-01-02 22:24] LABS: BLOOD UREA NITROGEN 11 mg/dL (7-18); CARBON DIOXIDE 27.5 mmol/L (21-32); CHLORIDE 105 mmol/L (98-107); SODIUM 138 mmol/L (136-145); TROPONIN I < 0.02 ng/mL (0-1.5); eGFR NON BLACK RACES > 60 (>60)
[2018-01-02 22:28] LABS: ALANINE AMINOTRANSFERASE 25 Units/L (12-78); ALBUMIN 2.9 g/dL (3.4-5.0); ALKALINE PHOSPHATASE 56 Units/L (46-116); ASPARTATE AMINO TRANSFERASE 13 Units/L (15-37); CKMB % 1.3 % (<4); COR CA(FOR HYPOALB) 9.9 mg/dL (8.5-10.1); CREATINE KINASE 76 Units/L (26-192); CREATINE KINASE MB < 1.0 ng/mL (0-4.0); MAGNESIUM 1.7 mg/dL (1.7-2.9); TOTAL PROTEIN 6.4 g/dL (6.4-8.2)
[2018-01-03] MEDS ORDERED: NS 100 ML IV 100 ML IV ONE (00:18)
[2018-01-03] MEDS ORDERED: LOVENOX INJ 100 MG SYR SC STA (01:10)
[2018-01-03] MEDS ORDERED: LOVENOX INJ 100 MG SYR SC ONE (01:29)
[2018-01-03 01:38] LABS: CKMB % 1.2 % (<4); CREATINE KINASE 86 Units/L (26-192); CREATINE KINASE MB < 1.0 ng/mL (0-4.0); TROPONIN I < 0.02 ng/mL (0-1.5)
[2018-01-03] MEDS ORDERED: MORPHINE SULFATE INJ 2 MG INJ IVP PRN (01:44)
[2018-01-03] MEDS: NS 1000 ML 1,000 ML IV SCH ×2 (03:16→17:43)
[2018-01-03 03:23] VITALS: BMI 57.4
[2018-01-03 08:07] LABS: BASOPHILS # (AUTO) 0.1 X10^3/uL (0.0-0.1); BASOPHILS % (AUTO) 1.4 % (0.2-1.0); EOSINOPHILS # (AUTO) 0.2 x10^3/uL (0.0-0.2); EOSINOPHILS % (AUTO) 2.6 % (0.9-2.9); HEMATOCRIT 33.6 % (36.0-47.0); HEMOGLOBIN 10.6 g/dL (12.0-16.0); LYMPHOCYTES # (AUTO) 2.6 X10^3/uL (1.3-2.9); LYMPHOCYTES % (AUTO) 40.3 % (21.0-51.0); MEAN CORPUSCULAR HGB CONC 31.6 g/dL (33.0-35.0); MEAN CORPUSCULAR VOLUME 66.5 fL (80.0-100.0); MEAN PLATELET VOLUME 7.5 fL (7.4-11.0); MONOCYTES # (AUTO) 0.3 x10^3/uL (0.3-0.8); MONOCYTES % (AUTO) 5.1 % (0.0-13.0); NEUTROPHILS # (AUTO) 3.3 x10^3/uL (2.2-4.8); NEUTROPHILS % (AUTO) 50.6 % (42.0-75.0); PLATELET COUNT 291 X10^3/uL (150.0-450.0); RED BLOOD COUNT 5.06 X10^6/uL (3.5-5.4); RED CELL DISTRIBUTION WIDTH 16.6 % (11.6-16.5); WHITE BLOOD COUNT 6.5 X10^3/uL (3.6-10.0)
[2018-01-03 08:10] LABS: PLATELET MORPHOLOGY COMMENT NORMAL (NORMAL)
[2018-01-03 08:20] LABS: ANISOCYTOSIS SLIGHT; HYPOCHROMASIA 2+; MICROCYTOSIS 1+
[2018-01-03 08:35] LABS: CHOL/HDL RATIO 4.3 (0.0-5.0)
[2018-01-03 08:36] LABS: ALANINE AMINOTRANSFERASE 24 Units/L (12-78); ALBUMIN 2.9 g/dL (3.4-5.0); ALKALINE PHOSPHATASE 54 Units/L (46-116); ASPARTATE AMINO TRANSFERASE 14 Units/L (15-37); BLOOD UREA NITROGEN 10 mg/dL (7-18); CALCIUM 8.6 mg/dL (8.5-10.1); CARBON DIOXIDE 28.1 mmol/L (21-32); CHLORIDE 106 mmol/L (98-107); COR CA(FOR HYPOALB) 9.5 mg/dL (8.5-10.1); SODIUM 139 mmol/L (136-145); TOTAL PROTEIN 5.8 g/dL (6.4-8.2); eGFR NON BLACK RACES > 60 (>60)
[2018-01-03 08:41] LABS: CREATINE KINASE 70 Units/L (26-192); CREATINE KINASE MB < 1.0 ng/mL (0-4.0); TROPONIN I < 0.02 ng/mL (0-1.5)
[2018-01-03 08:44] LABS: CKMB % 1.4 % (<4)
[2018-01-03] MEDS ORDERED: LASIX PO SCH (09:00)
[2018-01-03] MEDS ORDERED: HYZAAR 50/12.5 MG PO SCH (09:00)
[2018-01-03] MEDS: LOVENOX INJ 120 MG SYR SC SCH ×2 (09:50→20:22)
[2018-01-03] MEDS: PROTONIX INJ 40 MG VIAL IVP SCH (09:50)
[2018-01-03] MEDS ORDERED: ULTRAM PO PRN (14:05)
[2018-01-03] MEDS ORDERED: NITROSTAT SL PRN (14:05)
[2018-01-03 14:16] LABS: CREATINE KINASE 85 Units/L (26-192); CREATINE KINASE MB < 1.0 ng/mL (0-4.0); TROPONIN I < 0.02 ng/mL (0-1.5)
[2018-01-03 14:43] LABS: CKMB % 1.2 % (<4)
[2018-01-03] MEDS: LOPRESSOR TAB 25 MG PO SCH (20:22)
[2018-01-03] MEDS ORDERED: NEURONTIN CAP 400 MG PO SCH (21:00)
--- NOTE | 2018-01-03 22:56 | DR.H&P ---
H&P - History & Physical for Day of: H&P Date: 01/03/18 - Chief Complaint Chief Complaint: CHEST PAIN, "FEELS LIKE MY HEART TIGHTNESS AND THEN WHEN I TAKE A DEEP BREATH IT RELAXES. I FEEL LIKE MY HEART BEATS REALLY FAST AND HARD AT TIMES. THIS HAS BEEN GOING ON FOR A WHILE. I HAVE BEEN SEEING MY ." - History of Present Illness History of Present Illness: Patient is complaining of tightness in chest for a few minutes then it release and her heart seems to beat fast afterwards. States she has been having chest pain for the past 2-3 months that has been getting worst recently. States she took a nitroglycerin 01/01/18 and it helped the pain but she has not had a nitroglycerin or aspirin 01/02/18. States she went to see her doctor and she gave her some nitroglycerin to put under her tongue when she has chest pain. States the chest pains are sharp at times and is dull at times. States she has seen a systems security analyst in the past and they told her her heart was fine about a year ago. States her mother has CHF, COPD and Bradycardia and she just had a sister to for a heart attack at age 43. States she was on dialysis and had other problems. She denies wheezing but has been having problems with her legs and feet swelling. States she is taking Lasix , potassium, Losartan, neurontin and prevacid. State she has not had any medicines today. States the pain is 8 of 10. Does have leg swelling. Denies any other complaints. - Past Medical History Past Medical History: Anxiety, Arthritis, Asthma, GERD, Hypertension - Past Surgical History Surgical History: Ortho Surgery - Family History Family Medical History: Diabetes Mellitus, [place], Coronary Artery Disease, Hypertension - Social History Does patient currently use any type of tobacco product: No Have you used tobacco products in the last 12 months: No Type of Tobacco Use: None Does any household member use tobacco: Yes Alcohol Use: None Drug Use: None - Medications Home Medications: No Known Drug Allergies Allergy (Verified 01/02/18 21:19) CONTINUE taking the following medications furosemide 40 mg PO DAILY 01/03/18 [History] gabapentin 400 mg PO HS 01/03/18 [History] losartan 100 mg PO DAILY 01/03/18 [History] nitroglycerin [Nitrostat] 0.4 mg SUBLINGUAL PRN PRN 01/03/18 [History] omeprazole 40 mg PO DAILY 01/03/18 [History] potassium chloride [Klor-Con 10] 10 meq PO DAILY 01/03/18 [History] tramadol 100 mg PO Q8H PRN 01/03/18 [History] - Review of Systems Constitutional: No Symptoms Reported Eyes: No Symptoms Reported ENT: No Symptoms Reported Respiratory: No Symptoms Reported Cardiovascular: Chest Pain, Palpitations Gastrointestinal: No Symptoms Reported Genitourinary: No Symptoms Reported Musculoskeletal: No Symptoms Reported Skin: No Symptoms Reported Neurological: No Symptoms Reported - Physical Exam Vital Signs: Temperature 97.9 F Pulse Rate [Right Brachial] 80 Pulse Rate [Apical] 73 Pulse Rate 88 Respiratory Rate 22 Blood Pressure [Left Arm] 139/78 Blood Pressure [Right Arm] 140/72 Blood Pressure 135/96 O2 Sat by Pulse Oximetry 100 Oriented: Normal Eyes: Normal Ear: Normal Nose: Normal Throat: Normal Respiratory: Clear Throughout Cardiovascular: Normal : Normal Auscultation: Bowel Sounds: Normal Palpation: Normal Tenderness: Normal Skin: Normal Musculoskeletal: Normal Psychiatric: Normal Mood Description: Calm Affect: Normal Speech Pattern: Clear - Assessment/Plan (1) Chest pain Status: Acute Plan: cardiac enzymes, telemetry (2) Palpitations Status: Acute Plan: metoprolol 25mg po bid (3) Obesity Qualifiers: Obesity classification: adult class 3 (BMI >= 40) Body mass index: BMI 50.0 -59.9 Status: Acute - Allergies Allergies/Adverse Reactions: Allergies Allergy/AdvReac Type Severity Reaction Status Date / Time No Known Drug Allergies Allergy Verified 01/02/18 21:19
[2018-01-04] MEDS: NS 1000 ML 1,000 ML IV SCH ×2 (03:32→08:33)
[2018-01-04 06:58] LABS: BASOPHILS # (AUTO) 0.1 X10^3/uL (0.0-0.1); EOSINOPHILS # (AUTO) 0.2 x10^3/uL (0.0-0.2); EOSINOPHILS % (AUTO) 2.8 % (0.9-2.9); HEMATOCRIT 34.3 % (36.0-47.0); HEMOGLOBIN 10.8 g/dL (12.0-16.0); LYMPHOCYTES # (AUTO) 1.7 X10^3/uL (1.3-2.9); LYMPHOCYTES % (AUTO) 30.5 % (21.0-51.0); MEAN CORPUSCULAR HEMOGLOBIN 20.9 pg (27.0-34.0); MEAN CORPUSCULAR HGB CONC 31.4 g/dL (33.0-35.0); MEAN CORPUSCULAR VOLUME 66.4 fL (80.0-100.0); MEAN PLATELET VOLUME 7.7 fL (7.4-11.0); MONOCYTES # (AUTO) 0.4 x10^3/uL (0.3-0.8); MONOCYTES % (AUTO) 7.9 % (0.0-13.0); NEUTROPHILS # (AUTO) 3.3 x10^3/uL (2.2-4.8); NEUTROPHILS % (AUTO) 57.8 % (42.0-75.0); PLATELET COUNT 282 X10^3/uL (150.0-450.0); RED BLOOD COUNT 5.17 X10^6/uL (3.5-5.4); RED CELL DISTRIBUTION WIDTH 16.9 % (11.6-16.5); WHITE BLOOD COUNT 5.7 X10^3/uL (3.6-10.0)
[2018-01-04 07:11] LABS: PLATELET MORPHOLOGY COMMENT NORMAL (NORMAL)
[2018-01-04 07:12] LABS: ANISOCYTOSIS SLIGHT; HYPOCHROMASIA 2+; MICROCYTOSIS 1+
[2018-01-04 07:49] LABS: BLOOD UREA NITROGEN 7 mg/dL (7-18); CALCIUM 8.7 mg/dL (8.5-10.1); CHLORIDE 103 mmol/L (98-107); CREATININE 0.77 mg/dL (0.55-1.02); SODIUM 137 mmol/L (136-145); eGFR NON BLACK RACES > 60 (>60)
[2018-01-04] MEDS ORDERED: LASIX PO SCH (09:00)
[2018-01-04] MEDS ORDERED: PATIENT'S HOME MEDICATION (Potassium Chloride [Potassium Chloride] 10 MEQ) PO SCH (09:00)
[2018-01-04] MEDS ORDERED: COZAAR PO SCH (09:00)
[2018-01-04] MEDS ORDERED: MICRO K EXTEN CAP 10 MEQ PO SCH (09:00)
[2018-01-04] MEDS ORDERED: PriLOSEC PO SCH (09:00)
[2018-01-04] MEDS: LOPRESSOR TAB 25 MG PO SCH (09:40)
[2018-01-04] MEDS: PROTONIX INJ 40 MG VIAL IVP SCH (09:40)
[2018-01-04] MEDS: LOVENOX INJ 120 MG SYR SC SCH (09:48)
[2018-01-04 12:18] LABS: ALANINE AMINOTRANSFERASE 25 Units/L (12-78); ALBUMIN 2.9 g/dL (3.4-5.0); ALKALINE PHOSPHATASE 53 Units/L (46-116); ASPARTATE AMINO TRANSFERASE 16 Units/L (15-37); COR CA(FOR HYPOALB) 9.6 mg/dL (8.5-10.1); TOTAL PROTEIN 6.4 g/dL (6.4-8.2)
[2018-01-04] MEDS ORDERED: ZOFRAN INJ 4 MG VIAL IVP PRN (13:33)
--- NOTE | 2018-01-04 17:29 | VAS ---
Lower extremity doppler sonogram Indication: Bilateral leg pain with elevated D-dimer Comparison: None available TECHNIQUE: Multiple ruiz scale and color flow Doppler images of the deep venous system were obtained of the right and left lower extremity. FINDINGS: The deep venous system of the right and left lower extremities were evaluated from the level of the c ommon femoral vein through the popliteal vein. Normal color flow and augmentation can be observed. In addition, normal compression is seen throughout the deep venous system. IMPRESSION: 1. Negative for bilateral lower extremity DVT. Reported By:
[2018-01-04 18:18] VITALS: BP 125/82
--- NOTE | 2018-01-17 22:24 | PCM.DCPLAN ---
Discharge Summary - Admission Date Date of Admission: 01/03/18 - Discharge Date Discharge Date: 01/04/18 - Admission Diagnoses (1) Chest pain Status: Acute (2) Palpitations Status: Acute (3) Obesity Status: Acute - Discharge Diagnoses Discharge Diagnosis: same as admission diagnosis - Discharge Medications Discharge Medications: Home Medication List furosemide 40 mg PO DAILY 01/03/18 [History] gabapentin 400 mg PO HS 01/03/18 [History] losartan 100 mg PO DAILY 01/03/18 [History] nitroglycerin [Nitrostat] 0.4 mg SUBLINGUAL PRN PRN 01/03/18 [History] omeprazole 40 mg PO DAILY 01/03/18 [History] potassium chloride [Klor-Con 10] 10 meq PO DAILY 01/03/18 [History] tramadol 100 mg PO Q8H PRN 01/03/18 [History] metoprolol tartrate 25 mg PO BID #60 tab 01/04/18 [Rx] Prescriptions: metoprolol tartrate AUDRA MCRAE - Hospital Course Vital Signs: Temperature 97.7 F Pulse Rate [Right Brachial] 77 Pulse Rate [Apical] 73 Pulse Rate 88 Respiratory Rate 20 Blood Pressure [Left Arm] 139/78 Blood Pressure [Right Arm] 125/82 Blood Pressure 135/96 O2 Sat by Pulse Oximetry 100 Latest Lab Results: Laboratory Last Values WBC 5.7 X10^3/uL (3.6-10.0) 01/04/18 05:48 RBC 5.17 X10^6/uL (3.5-5.4) 01/04/18 05:48 Hgb 10.8 g/dL (12.0-16.0) L 01/04/18 05:48 Hct 34.3 % (36.0-47.0) L 01/04/18 05:48 MCV 66.4 fL (80.0-100.0) L 01/04/18 05:48 MCH 20.9 pg (27.0-34.0) L 01/04/18 05:48 MCHC 31.4 g/dL (33.0-35.0) L 01/04/18 05:48 RDW 16.9 % (11.6-16.5) H 01/04/18 05:48 Plt Count 282 X10^3/uL (150.0-450.0) 01/04/18 05:48 Plt Count Comment Adequate (ADEQUATE) 01/04/18 05:48 MPV 7.7 fL (7.4-11.0) 01/04/18 05:48 Neut % (Auto) 57.8 % (42.0-75.0) 01/04/18 05:48 Lymph % (Auto) 30.5 % (21.0-51.0) 01/04/18 05:48 [place] % (Auto) 7.9 % (0.0-13.0) 01/04/18 05:48 Eos % (Auto) 2.8 % (0.9-2.9) 01/04/18 05:48 Baso % (Auto) 1.0 % (0.2-1.0) 01/04/18 05:48 Neut # (Auto) 3.3 x10^3/uL (2.2-4.8) 01/04/18 05:48 Lymph # (Auto) 1.7 X10^3/uL (1.3-2.9) 01/04/18 05:48 [place] # (Auto) 0.4 x10^3/uL (0.3-0.8) 01/04/18 05:48 Eos # (Auto) 0.2 x10^3/uL (0.0-0.2) 01/04/18 05:48 Baso # (Auto) 0.1 X10^3/uL (0.0-0.1) 01/04/18 05:48 Absolute Nucleated RBC 0.1 /100WBC 01/04/18 05:48 Plt Morphology Comment Normal (NORMAL) 01/04/18 05:48 RBC Morphology Abnormal (NORMAL) A 01/04/18 05:48 Hypochromasia 2+ A 01/04/18 05:48 Anisocytosis Slight A 01/04/18 05:48 Microcytosis 1+ A 01/04/18 05:48 INR Target Range - 01/02/18 21:47 INR 0.97 (0.8-1.3) 01/02/18 21:47 APTT 27.2 SECONDS (22.9-36.5) 01/02/18 21:47 PTT Comment - 01/02/18 21:47 D-Dimer 612 ng/mL (0-400) H* 01/02/18 21:47 Sodium 137 mmol/L (136-145) 01/04/18 05:48 Corrected Sodium TNP 01/04/18 05:48 Potassium 3.9 mmol/L (3.5-5.1) 01/04/18 05:48 Chloride 103 mmol/L (98-107) 01/04/18 05:48 Carbon Dioxide 26.0 mmol/L (21-32) 01/04/18 05:48 BUN 7 mg/dL (7-18) 01/04/18 05:48 Creatinine 0.77 mg/dL (0.55-1.02) 01/04/18 05:48 Est GFR (MDRD) Af Amer > 60 (>60) 01/04/18 05:48 Est GFR (MDRD) Non-Af > 60 (>60) 01/04/18 05:48 Glucose 102 mg/dL (65-99) H 01/04/18 05:48 Calcium 8.7 mg/dL (8.5-10.1) 01/04/18 05:48 Corrected Calcium 9.6 mg/dL (8.5-10.1) 01/04/18 05:48 Magnesium 1.7 mg/dL (1.7-2.9) 01/02/18 21:47 Total Bilirubin 0.30 mg/dL (0.2-1.0) 01/04/18 05:48 AST 16 Units/L (15-37) 01/04/18 05:48 ALT 25 Units/L (12-78) 01/04/18 05:48 Alkaline Phosphatase 53 Units/L (46-116) 01/04/18 05:48 Creatine Kinase 85 Units/L (26-192) 01/03/18 13:46 CK-MB (CK-2) < 1.0 ng/mL (0-4.0) 01/03/18 13:46 CK/CKMB % Calc 1.2 % (<4) 01/03/18 13:46 Troponin I < 0.02 ng/mL (0-1.5) 01/03/18 13:46 Total Protein 6.4 g/dL (6.4-8.2) 01/04/18 05:48 Albumin 2.9 g/dL (3.4-5.0) L 01/04/18 05:48 Globulin 3.5 g/dL (2.5-4.5) 01/04/18 05:48 Albumin/Globulin Ratio 0.8 Ratio (1.1-2.1) L 01/04/18 05:48 Triglycerides 123 mg/dL (0-150) 01/03/18 07:49 Cholesterol 185 mg/dL (0-200) 01/03/18 07:49 LDL Cholesterol, Calc 117 mg/dL (0-100) H 01/03/18 07:49 HDL Cholesterol 43 mg/dL (40-60) 01/03/18 07:49 Cholesterol/HDL Ratio 4.3 (0.0-5.0) 01/03/18 07:49 Hospital Course: Patient is complaining of tightness in chest for a few minutes then it release and her heart seems to beat fast afterwards. States she has been having chest pain for the past 2-3 months that has been getting worst recently. States she took a nitroglycerin 01/01/18 and it helped the pain but she has not had a nitroglycerin or aspirin 01/02/18. States she went to see her doctor and she gave her some nitroglycerin to put under her tongue when she has chest pain. States the chest pains are sharp at times and is dull at times. States she has seen a insurance defense paralegal in the past and they told her her heart was fine about a year ago. States her mother has CHF, COPD and Bradycardia and she just had a sister to for a heart attack at age 45. States she was on dialysis and had other problems. She denies wheezing but has been having problems with her legs and feet swelling. States she is taking Lasix, potassium, Losartan, neurontin and prevacid. Patient was started on Metoprolol and tolerated. Patient was discharged home to be followed on office setting. - Discharge Plan Disposition: 01 HOME, SELF-CARE Condition: Stable Prescriptions: metoprolol tartrate 25 mg PO BID #60 tab - Follow ups/Referrals Follow ups/Referrals: SANDRA ORO [Nurse Practitioner] - 1 WEEK - Instructions Instructions: Nonspecific Chest Pain, [id number] Forms: Patient Portal
== END 2018-01-04 18:50 | disposition home or self-care (01) ==
LOC: MED/SURG 21:08 → ER 21:08 → MED/SURG 01-03 02:08
PROVIDERS: ADMIT Internal Medicine; ATTEND Internal Medicine
DX: R06.02 Shortness of breath; E66.9 Obesity, unspecified; R07.89 Other chest pain; R94.31 Abnormal electrocardiogram [ECG] [EKG]; R79.1 Abnormal coagulation profile; R00.2 Palpitations
CPT/HCPCS: 36415; 71010; 71045; 80053; 80061; 82550; 82553; 83735; 84484; 85025; 85378; 85610; 85730; 93005; 93010; 93041; 93970; 94760; 96365; 96367; 96372; 99218; 99284; A4216; A4222; C9113; G0378; J1650; J2405; J7030; J7050